=== PATIENT | female | born 1970 | race Caucasian/White ===

== ENCOUNTER → 2016-11-22 | Outpatient (CLI) | payer MEDICAID ==
--- NOTE | 2016-11-22 17:03 | US ---
Complete Pelvic Ultrasound INDICATION: Left adnexal tenderness. TECHNIQUE: Transabdominal and transvaginal pelvic ultrasound is performed. FINDINGS: Uterus measures 6.6 x 3.3 x 4.3 cm. Endometrial lining measures 4.6 mm. No fibroids. Juncti onal zone appears within normal limits. Uterus is retroverted. IUD appears to been in good place. Right ovary measures 2.3 x 1.3 x 1.9 cm. Left ovary measures 1.4 x 0.9 x 1.2 cm. Both are sonographic ally normal. No free fluid. IMPRESSION: 1. Good positioning of IUD. 2. Otherwise normal uterus and ovaries.
== END ==
LOC: BRMIMAGING 14:35
PROVIDERS: ATTEND Advanced Practice Midwife
DX: Z30.431 Encounter for routine checking of intrauterine contraceptive device (principal); R10.2 Pelvic and perineal pain
CPT/HCPCS: 76856-PO

== ENCOUNTER → 2017-05-22 | Outpatient (CLI) | payer MEDICAID | LOC: BRMIMAGING 08:43 | PROVIDERS: ATTEND Physician Assistant | DX: K82.4 Cholesterolosis of gallbladder (principal); K75.3 Granulomatous hepatitis, not elsewhere classified | CPT/HCPCS: 76705-PO ==

== ENCOUNTER → 2018-01-13 | Outpatient (CLI) | payer MEDICAID ==
[~2018-01-13] MED LIST: GADOBUTROL 10 ML VIAL IVP ONE
== END ==
LOC: FIMAGING 12:39
PROVIDERS: ATTEND Internal Medicine Hematology & Oncology
DX: Z08 Encounter for follow-up examination after completed treatment for malignant neoplasm (principal); Z85.3 Personal history of malignant neoplasm of breast; Z90.13 Acquired absence of bilateral breasts and nipples
CPT/HCPCS: 0159T; 77059; A9585; C8908

== ENCOUNTER → 2018-07-02 | Outpatient (CLI) | payer MEDICAID | LOC: FIMAGING 12:43 | PROVIDERS: ATTEND Internal Medicine Hematology & Oncology | DX: Z13.820 Encounter for screening for osteoporosis (principal); M85.89 Other specified disorders of bone density and structure, multiple sites; Z85.3 Personal history of malignant neoplasm of breast; Z92.21 Personal history of antineoplastic chemotherapy ==